=== PATIENT | male | born 1960 | race Two or more races ===

== ENCOUNTER 2018-06-15 01:57 | Emergency (ER) | payer OTHER ==
[~2018-06-15] VITALS: Ht 175.3 cm; Wt 98.9 kg
[2018-06-15] MEDS ORDERED: DIOVAN HCT 3201 EACH (02:17)
[2018-06-15] MEDS ORDERED: NORVASC10 MG (02:17)
[2018-06-15] MEDS ORDERED: PREVACID30 MG (02:18)
== END 2018-06-15 04:34 | disposition home or self-care (01) ==
LOC: ER 01:57
DX: R07.89 Other chest pain (principal); R11.0 Nausea